=== PATIENT | female | born 1950 | race African-American/Black ===

== ENCOUNTER 2018-10-24 15:50 | Observation (INO) | payer BC ==
--- NOTE | 2018-10-24 17:07 | PDOC ---
Attending Attestation - Resident Resident Name: Rudy Dougherty - HPI HPI: The patient is a 68 year old female, with a significant PMH of DM, HTN, hypercholesterolemia, arthritis, and kidney stones who presents to the emergency department s/p pre-syncopal episode yesterday. Patient reports feeling lightheaded with bilateral heaviness in her hands, causing her to have to sit down and have alcohol splashed on her face to help her feel better. She denies LOC or head contusion. Patient denies any symptoms at this time, but was advised by her PCP to come to the ED for treatment of her pre-syncopal episode. The patient denies chest pain, shortness of breath, and headache. Denies fever, chills, nausea, vomit, diarrhea and constipation. Denies dysuria, frequency, urgency and hematuria. Allergies: NKA Past surgical history: Appendectomy Social history: No reported PCP: Dr. Tawanna Willis 10/24/18 19:01 - Physicial Exam PE: GENERAL: Awake, alert, and fully oriented, in no acute distress HEAD: No signs of trauma EYES: PERRLA, EOMI, sclera anicteric, conjunctiva clear ENT: Auricles normal inspection, hearing grossly normal, nares patent, oropharynx clear without exudates. Moist mucosa NECK: Normal ROM, supple, no lymphadenopathy, JVD, or masses LUNGS: Breath sounds equal, clear to auscultation bilaterally. No wheezes, and no crackles HEART: Regular rate and rhythm, normal S1 and S2, no murmurs, rubs or gallops ABDOMEN: Soft, nontender, normoactive bowel sounds. No guarding, no rebound. No masses EXTREMITIES: Normal range of motion, no edema. No clubbing or cyanosis. No cords, erythema, or tenderness NEUROLOGICAL: Cranial nerves II through XII grossly intact. Normal speech, normal gait SKIN: Warm, Dry, normal turgor, no rashes or lesions noted. 10/24/18 19:01 - Medical Decision Making EXAM#: TYPE/EXAM: RESULT: [id number] RAD/CHEST X-RAY PORTABLE* Syncope Impression: No acute cardiopulmonary disease is present Reported By: Jennifer Portillo MD 10/24/18 19:41 Documentation prepared by KAMLA Interiano, acting as auditor medical claims for Radha Hicks MD. 10/24/18 19:42 <Oxana Oropeza - Last Filed: 10/24/18 19:42> - Medical Decision Making 10/26/18 16:51 Pt presents to the ED for a one day history of persistent lightheadness and an episode of presyncope. EKG and labs are within normal limits, but given her age , will admit to medicine for syncope work up. <Radha Hicks - Last Filed: 10/26/18 16:52> Heart Score/ECG Review - ECG Intrepretation Rhythm: Regular Rhythm Comment:: Normal sinus rhythm. Normal ECG. 10/24/18 17:31 <Oxana Oropeza - Last Filed: 10/24/18 19:42>
--- NOTE | 2018-10-24 18:17 | PDOC ---
History of Present Illness - General Chief Complaint: Syncope/Near Syncope Stated Complaint: Syncope/Near Syncope Time Seen by Provider: 10/24/18 17:05 History Source: Patient Exam Limitations: No Limitations - History of Present Illness Initial Comments: 10/24/18 18:12 The patient is a 68F with a PMH of HTN, DM, HLD who was sent by PCP to ER for syncope. The patient states that she was eating dinner yesterday evening when she syncopized. She woke up feeling well. She states that her only symptom prior to syncope was a feeling of heaviness in her b/l hands. She denies any acute complaints now. She denies fever, chills, nausea, vomiting, CP, SOB, numbness, or tingling before, during, or after the syncopal episode. Past History - Past Medical History Allergies/Adverse Reactions: Allergies Allergy/AdvReac Type Severity Reaction Status Date / Time No Known Allergies Allergy Verified 10/24/18 16:35 Home Medications: Ambulatory Orders Amlodipine Besylate 10 mg PO DAILY 10/24/18 Atorvastatin Ca [Lipitor] 20 mg PO HS 10/24/18 Gabapentin 300 mg PO TID 10/24/18 Metformin HCl [Glucophage] 500 mg PO DAILY 10/24/18 Diabetes: Yes HTN: Yes Hypercholesterolemia: Yes - Surgical History Appendectomy: Yes - Suicide/Smoking/Psychosocial Hx Smoking History: Never smoked Hx Alcohol Use: No Drug/Substance Use Hx: No Substance Use Type: None Review of Systems - Review of Systems Able to Perform ROS?: Yes Comments:: 10/24/18 18:19 GENERAL/CONSTITUTIONAL: No fever or chills. No weakness. HEAD, EYES, EARS, NOSE AND THROAT: No change in vision. No ear pain or discharge. No sore throat. CARDIOVASCULAR: No chest pain, palpitations, or lightheadedness. RESPIRATORY: No cough, wheezing, shortness of breath, or hemoptysis. GASTROINTESTINAL: No nausea, vomiting, diarrhea, constipation, or abdominal pain. GENITOURINARY: No dysuria, frequency, hematuria, or change in urination. MUSCULOSKELETAL: No joint or muscle swelling or pain. No neck or back pain. SKIN: No rash or lesions. NEUROLOGIC: + for syncope. No headache, numbness, tingling, focal weakness, loss of consciousness, or change in strength/sensation. Is the patient limited Mongolian proficient: No *Physical Exam - Vital Signs Last Vital Signs Temp Pulse Resp BP Pulse Ox 98.0 F 65 18 152/77 100 10/24/18 16:36 10/24/18 16:36 10/24/18 16:36 10/24/18 16:36 10/24/18 16:36 - Physical Exam Comments: 10/24/18 18:19 GENERAL: Well developed, well nourished. Awake and alert. No acute distress. HEENT: Normocephalic, atraumatic. Hearing grossly normal. Moist mucous membranes. PERRLA, EOMI. No conjunctival pallor. Sclera are non-icteric. Oropharynx is clear. NECK: Supple. Full ROM. No JVD. CARDIOVASCULAR: Regular rate and rhythm. No murmurs, rubs, or gallops. PULMONARY: No evidence of respiratory distress. Lungs clear to auscultation bilaterally. No wheezing, rales or rhonchi. ABDOMINAL: Soft. Non-tender. Non-distended. No rebound or guarding. GENITOURINARY: No CVA tenderness bilaterally. MUSCULOSKELETAL: Normal range of motion at all joints. No bony deformities or tenderness. EXTREMITIES: No cyanosis. No clubbing. No edema. No calf tenderness or swelling. SKIN: Warm and dry. Normal capillary refill. No rashes. No jaundice. NEUROLOGICAL: Alert, awake, appropriate. Cranial nerves 2-12 grossly intact. No deficits to light touch and temperature in face, upper extremities and lower extremities. 5/5 strength in deltoids, biceps, triceps, quadriceps, hamstrings, and gastrocnemius. Normal speech. Gait is normal without ataxia. PSYCHIATRIC: Cooperative. Good eye contact. Appropriate mood and affect. Moderate Sedation - Procedure Monitoring Vital Signs: Procedure Monitoring Vital Signs Temperature 98.0 F 10/24/18 16:36 Pulse Rate 65 10/24/18 16:36 Respiratory Rate 18 10/24/18 16:36 Blood Pressure 152/77 10/24/18 16:36 O2 Sat by Pulse Oximetry (%) 100 10/24/18 16:36 ED Treatment Course - LABORATORY CBC & Chemistry Diagram: 10/24/18 18:00 10/24/18 18:00 - RADIOLOGY Radiology Studies Ordered: Category Date Time Status HEAD CT WITHOUT CONTRAST [CT] Stat CT Scan 10/24/18 17:34 Ordered CHEST X-RAY PORTABLE* [RAD] Stat Radiology 10/24/18 17:34 Ordered Medical Decision Making - Medical Decision Making 10/24/18 18:19 The patient is a 68F with a PMH of HTN, HLD, DM who presents to the ER after having a syncopal episode yesterday, sent by her PCP Dr. Tawanna Willis. Will obtain labs and EKG and admit for syncopal workup. 10/24/18 19:31 CBC WNL. CMP shows mild AST and alk phos elevation w/ negative troponin. Preliminary read of CXR negative. Will microblog for admission. *DC/Admit/Observation/Transfer - Referrals Referrals: Tawanna Willis MD [Primary Care Provider] - - Patient Instructions - Post Discharge Activity
[2018-10-24 18:21] LABS: BASO % 1.2 % (0-2.0); EOS % 2.7 % (0-4.5); HEMATOCRIT 38.1 % (32.4-45.2); HEMOGLOBIN 13.3 GM/dL (10.7-15.3); LYMPH % 33.4 % (8-40); MCH 27.6 pg (25.7-33.7); MEAN CELL VOLUME 78.8 fl (80-96); NEUT % 53.7 % (42.8-82.8); PLATELET COUNT 288 K/MM3 (134-434); RBC 4.83 M/mm3 (3.60-5.2); RDW 14.7 % (11.6-15.6); WHITE BLOOD COUNT 5.8 K/mm3 (4.0-10.0)
[2018-10-24 19:05] LABS: ALBUMIN 3.8 g/dl (3.4-5.0); ALK PHOS 120 U/L (45-117); ANION GAP 7 MMOL/L (8-16); BILIRUBIN,TOTAL 0.5 mg/dL (0.2-1); BLOOD UREA NITROGEN 18 mg/dL (7-18); CALCIUM 9.2 mg/dL (8.5-10.1); CHLORIDE 105 mmol/L (98-107); CO2 27 mmol/L (21-32); CREATININE 0.7 mg/dL (0.55-1.3); GLUCOSE,RANDOM 129 mg/dL (74-106); N-TERMINAL BNP 171.6 pg/ml (5-125); POTASSIUM 4.2 mmol/L (3.5-5.1); SGOT/AST 23 U/L (15-37); SGPT/ALT 28 U/L (13-61); SODIUM 138 mmol/L (136-145); TOT PROT 7.2 g/dl (6.4-8.2)
--- NOTE | 2018-10-24 20:06 | PN ---
Teaching Attending Note Name of Resident: Alice Robert ATTENDING PHYSICIAN STATEMENT I saw and evaluated the patient. I reviewed the resident's note and discussed the case with the resident. I agree with the resident's findings and plan as documented. SUBJECTIVE: Seen and examined; please refer to resident note for further historical information. Briefly, yesterday she was ambulating in the mall with a friend with b/l hand 'heaviness' and some lightheadedness. She thinks that she may have briefly lost consciousness; no confusion, no FND, no seizure activity, no tinnitus/hearing loss. They put rubbing alcohol on a towel and it resolved her sx. Today she saw her PCP (Dr. Tawanna Willis) who recommended that she present to the ER. She denies any other symptoms. She wonders if she at the time (she didn't have a chance to check her blood sugar); she normally feels weak with her subjective hypoglycemia but this was more severe and furthermore she is only on metformin which would be unlikely to cause this. Orthostatics negative in the ER. Symptoms have not recurred. She informs us that she had a stress test done last year but that she never followed up with the results; she is unsure of the indication for said stress test. 10 sys ROS done and negative aside from HPI PMH (DM, HTN, HLD, OA), PSH (Appy, R-hernia repair), Family hx (mom with CVA), Social hx reviewed (no etoh, tobacco) Medication list reviewed; pending reconciliation OBJECTIVE: VS, labs, imaging reviewed NAD, AAO, resting comfortably in bed NC AT EOMI PERRLA RRR s1/2 no mgr Lungs CTAB, w/ sym exp NT ND +BS CN2-12 wnl, no fnd Normal mood, appropriate behavior EKG reviewed Echo, carotid dopplers pending Labs with mild CK, CK-Mb elevation; repeat pending ASSESSMENT AND PLAN: Patient presents to the hospital after having a presyncopal episode yesterday 1) Presyncope -Negative orthostatics, no arrhythmia on EKG to explain. Ddx broad. -Negative CT head; monitor telemetry, followup echo and check carotid dopplers ( risk factors + for cerebrovascular disease). No recent illness, tinnitus, ear pain, etc. Negative dayna halpike. No high degree AV block or issues seen on tele. -Monitor for hypoglycemia -Fall precautions, PT referral 2) Elevated CK-Mb -Followup repeat; no CV sx at this time and negative troponin. Will monitor on tele. Can try to obtain OP stress results. 3) HTN -Continue home meds; negative OS VS. 4) HLD -Continue home medications 5) OA -PRN management
[2018-10-24 21:23] LABS: INR 1.01 (0.83-1.09); PROTHROMBIN TIME (PATIENT) 11.9 SEC (9.7-13.0)
--- NOTE | 2018-10-24 21:31 | HP ---
CHIEF COMPLAINT:near syncope PCP:Dr. Tawanna Willis HISTORY OF PRESENT ILLNESS: Patient is a 68 year old female with past medical history of HTN, HLD and DM, presented to the ED due to syncopal episode yesterday. Patient reported she was in a mall with friend when she suddenly felt "weird", feeling like she's going to pass out, with some lightheadedness and bilateral hand heaviness. Patient reported she blacked out for a second, but denies any head trauma nor confusion afterwards. This was witnessed by her friend who noted that she wasn't looking good, helped patient to sit down, and put rubbing alcohol into a towel and had the patient inhale it. This lasted for a few seconds, and patient reported feeling better afterwards. Patient denies any fever, chills, headache, nasal congestion, cough, hearing loss, tinnitus, nausea, vomiting, chest pain, SOB, palpitations, abdominal pain, diarrhea, urinary symptoms. 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 Tito Snider). ER course was notable for: (1) (2) (3) Recent Travel:denies PAST MEDICAL HISTORY: HTN HLD DM PAST SURGICAL HISTORY: appendectomy right inguinal hernia repair Social History: Smoking:denies Alcohol:denies Drugs: denies Family History: Mother - stroke at 60 Allergies No Known Allergies Allergy (Verified 10/24/18 16:35) HOME MEDICATIONS: Home Medications Medication Instructions Recorded Amlodipine Besylate 10 mg PO DAILY 10/24/18 Atorvastatin Ca [Lipitor] 20 mg PO HS 10/24/18 Gabapentin 300 mg PO TID 10/24/18 Metformin HCl [Glucophage] 500 mg PO DAILY 10/24/18 REVIEW OF SYSTEMS CONSTITUTIONAL: Absent: fever, chills, diaphoresis, generalized weakness, malaise, loss of appetite, weight change HEENT: Absent: rhinorrhea, nasal congestion, throat pain, throat swelling, difficulty swallowing, mouth swelling, ear pain, eye pain, visual changes CARDIOVASCULAR: Absent: chest pain, syncope, palpitations, irregular heart rate, lightheadedness , peripheral edema RESPIRATORY: Absent: cough, shortness of breath, dyspnea with exertion, orthopnea, wheezing, stridor, hemoptysis GASTROINTESTINAL: Absent: abdominal pain, abdominal distension, nausea, vomiting, diarrhea, constipation, melena, hematochezia GENITOURINARY: Absent: dysuria, frequency, urgency, hesitancy, hematuria, flank pain, genital pain MUSCULOSKELETAL: Absent: myalgia, arthralgia, joint swelling, back pain, neck pain SKIN: Absent: rash, itching, pallor HEMATOLOGIC/IMMUNOLOGIC: Absent: easy bleeding, easy bruising, lymphadenopathy, frequent infections ENDOCRINE: Absent: unexplained weight gain, unexplained weight loss, heat intolerance, cold intolerance NEUROLOGIC: Absent: headache, focal weakness or paresthesias, dizziness, unsteady gait, seizure, mental status changes, bladder or bowel incontinence PSYCHIATRIC: Absent: anxiety, depression, suicidal or homicidal ideation, hallucinations. PHYSICAL EXAMINATION Vital Signs - 24 hr 10/24/18 16:36 Temperature 98.0 F Pulse Rate 65 Respiratory 18 Rate Blood Pressure 152/77 O2 Sat by Pulse 100 Oximetry (%) Orthostatics: lying down 141/74, sitting down 144/81, standing 157/98 GENERAL: Awake, alert, and fully oriented, in no acute distress. HEAD: Normal with no signs of trauma. EYES: PERRLA, EOMI, sclera anicteric, conjunctiva clear. EARS, NOSE, THROAT: Ears normal, oropharynx clear without exudates. Moist mucous membranes. Dighton-Hallpike negative NECK: Normal range of motion, supple without lymphadenopathy, JVD, or masses. LUNGS: Breath sounds equal, clear to auscultation bilaterally. HEART: Regular rate and rhythm, normal S1 and S2 without murmur, rub or gallop. ABDOMEN: Soft, nontender, not distended, normoactive bowel sounds. MUSCULOSKELETAL: Normal range of motion at all joints. No CVA tenderness. UPPER EXTREMITIES: 2+ pulses, warm, well-perfused. No peripheral edema. LOWER EXTREMITIES: 2+ pulses, warm, well-perfused. +2 bilateral peripheral edema. NEUROLOGICAL: Cranial nerves II-XII intact. Motor strength 5/5 on all extremities, sensation intact. Normal speech. Uses a cane to ambulate. PSYCHIATRIC: Cooperative. Good eye contact. Appropriate mood and affect. SKIN: Warm, dry, normal turgor, no rashes or lesions noted. Laboratory Results - last 24 hr 10/24/18 10/24/18 10/24/18 18:00 18:00 18:00 WBC 5.8 RBC 4.83 Hgb 13.3 Hct 38.1 MCV 78.8 L MCH 27.6 MCHC 35.0 RDW 14.7 Plt Count 288 MPV 8.0 Absolute Neuts (auto) 3.1 Neutrophils % 53.7 Lymphocytes % 33.4 Monocytes % 9.0 Eosinophils % 2.7 Basophils % 1.2 Nucleated RBC % 0 PT with INR 11.90 INR 1.01 Sodium 138 Potassium 4.2 Chloride 105 Carbon Dioxide 27 Anion Gap 7 L BUN 18 Creatinine 0.7 Creat Clearance w eGFR > 60 Random Glucose 129 H Calcium 9.2 Magnesium 2.0 Total Bilirubin 0.5 AST 23 ALT 28 Alkaline Phosphatase 120 H Creatine Kinase 241 H Creatine Kinase Index 1.5 CK-MB (CK-2) 3.7 H Troponin I < 0.02 B-Natriuretic Peptide 171.6 H Total Protein 7.2 Albumin 3.8 ASSESSMENT/PLAN: Patient is a 68 year old female with past medical history of HTN, HLD and DM, presented to the ED due to a syncopal episode yesterday. #Syncope: unclear etiology -Head CT: no acute intracranial pathology -Carotid doppler: Small plaques in the right common carotid bifurcation as well as minimal intimal thickening and tiny plaques at the left carotid bifurcation without evidence of hemodynamically significant stenosis bilaterally. -Orthostatics negative, Dighton-hallpike negative -Echo -A1c, Lipid profile, TSH -Tele monitoring #HTN -Amlodipine 10mg daily #HLD -Continue home Lipitor 20mg PO HS #DM -Hold home Metformin -BGM ACHS -Insulin sliding scale implemented #Overflow incontinence -Continue Trospium chloride 20mg BID #FEN -Not on any standing fluids -Electrolytes wnl, routine bmp monitoring -Diabetic diet #Prophylaxis -Heparin 5000units sq bid #Disposition -full code -tele obs Visit type - Emergency Visit Emergency Visit: Yes ED Registration Date: 10/24/18 Care time: The patient presented to the Emergency Department on the above date and was hospitalized for further evaluation of their emergent condition. - New Patient This patient is new to me today: Yes Date on this admission: 10/28/18 - Critical Care Critical Care patient: No
[2018-10-24] MEDS ORDERED: ATORVASTATIN CA 10 MG TABLET (FP) ONE (23:15)
[2018-10-24] MEDS ORDERED: HEPARIN NA (PORCINE) 5,000 UNITS/ML 1ML VIAL ONE (23:15)
[2018-10-24] MEDS ORDERED: INSULIN (NOVOLOG) ASPART 100 UNITS/ML 10ML VIAL ONE (23:16)
[2018-10-24] MEDS: HEPARIN NA (PORCINE) 5,000 UNITS/ML 1ML VIAL SQ SCH (23:21)
[2018-10-24] MEDS: ATORVASTATIN CA 20 MG TABLET (FP) PO SCH (23:22)
[2018-10-24] MEDS: INSULIN SLIDING SCALE (NOVOLOG) 1 VIAL SQ SCH (23:22)
[2018-10-24 23:35] LABS: URINE APPEARANCE CLEAR; URINE BILIRUBIN NEGATIVE (<2.0 mg/dL); URINE COLOR YELLOW; URINE GLUCOSE (UA) NEGATIVE (NEGATIVE); URINE KETONE NEGATIVE (NEGATIVE); URINE LEUK ESTERASE TRACE (NEGATIVE); URINE NITRITE NEGATIVE (NEGATIVE); URINE PROTEIN NEGATIVE (NEGATIVE); URINE UROBILINOGEN NEGATIVE mg/dL (0.2-1.0)
[2018-10-24 23:48] LABS: URINE MUCUS RARE
[2018-10-25 03:14] VITALS: BMI 39.9
[2018-10-25] MEDS: GABAPENTIN 300 MG CAPSULE (FP) PO SCH ×3 (06:00→23:54)
[2018-10-25] MEDS: INSULIN SLIDING SCALE (NOVOLOG) 1 VIAL SQ SCH ×4 (06:00→23:54)
[2018-10-25 06:46] LABS: BASO % 0.8 % (0-2.0); EOS % 2.6 % (0-4.5); HEMATOCRIT 36.2 % (32.4-45.2); HEMOGLOBIN 12.7 GM/dL (10.7-15.3); LYMPH % 37.4 % (8-40); MCH 27.7 pg (25.7-33.7); MCHC 35.1 g/dl (32.0-36.0); MONO % 10.9 % (3.8-10.2); NEUT % 48.3 % (42.8-82.8); PLATELET COUNT 281 K/MM3 (134-434); RBC 4.59 M/mm3 (3.60-5.2); RDW 14.5 % (11.6-15.6); WHITE BLOOD COUNT 5.4 K/mm3 (4.0-10.0)
[2018-10-25 09:00] LABS: ALBUMIN 3.6 g/dl (3.4-5.0); ALK PHOS 110 U/L (45-117); ANION GAP 7 MMOL/L (8-16); BILIRUBIN,TOTAL 0.7 mg/dL (0.2-1); BLOOD UREA NITROGEN 20 mg/dL (7-18); CHLORIDE 108 mmol/L (98-107); CO2 27 mmol/L (21-32); CREATININE 0.8 mg/dL (0.55-1.3); GLUCOSE,RANDOM 85 mg/dL (74-106); PHOSPHOROUS 3.9 mg/dL (2.5-4.9); POTASSIUM 4.4 mmol/L (3.5-5.1); SGOT/AST 16 U/L (15-37); SGPT/ALT 22 U/L (13-61); SODIUM 142 mmol/L (136-145); TOT PROT 6.7 g/dl (6.4-8.2)
[2018-10-25] MEDS: SODIUM CHLORIDE 1,000 ML IV SCH (09:46)
[2018-10-25] MEDS ORDERED: TROSPIUM CHLORIDE 20 MG PO SCH (10:00)
[2018-10-25] MEDS ORDERED: amLODIPine BESYLATE 10 MG TABLET (FP) PO SCH (10:00)
[2018-10-25] MEDS: HEPARIN NA (PORCINE) 5,000 UNITS/ML 1ML VIAL SQ SCH ×2 (10:45→23:53)
--- NOTE | 2018-10-25 10:57 | ECHO ---
Name: EMA, MELVIN Exam:Adult Echocardiogram Study Date: 10/25/2018 09:39 AM Age: 68 yrs Reason For Study: SYNCOPE Height: 65 in Weight: 204 lb BSA: 2.0 m2 MMode/2D Measurements & Calculations IVSd: 0.88 cm ACS: 2.0 cm LVIDd: 3.6 cm LVIDs: 2.5 cm LVPWd: 1.3 cm EDV(Teich): 54.0 ml LVOT diam: 2.0 cm ESV(Teich): 21.5 ml RV S Jerry: 11.4 cm/sec Doppler Measurements & Calculations Med Peak E' Jerry: 7.5 cm/sec Lat Peak E' Jerry: 8.7 cm/sec Left Ventricle There is mild concentric left ventricular hypertrophy. Left ventricular systolic function is normal. Ejection Fraction = 55-60%. The transmitral spectral Doppler flow pattern is suggestive of impaired LV relaxat ion. Right Ventricle The right ventricle is normal in size and function. Atria Normal left and right atrial size and function. The atrial septum is aneurysmal. Mitral Valve The mitral valve is normal in structure and function. There is no mitral valve stenosis. There is mil d mitral regurgitation. Tricuspid Valve The tricuspid valve is normal in structure and function. There is mild tricuspid regurgitation. Aortic Valve The aortic valve opens well. No hemodynamically significant valvular aortic stenosis. No aortic regur gitation is present. Great Vessels The aortic root is normal size. Pericardium/Pleura There is no pericardial effusion. Interpretation Summary There is mild concentric left ventricular hypertrophy. Left ventricular systolic function is normal. Ejection Fraction = 55-60%. The right ventricle is normal in size and function. There is mild mitral regurgitation. There is mild tricuspid regurgitation. The atrial septum is aneurysmal. There is no pericardial effusion. MD Ward *Tanja 10/25/2018 10:56 AM
--- NOTE | 2018-10-25 14:25 | EKG ---
Test Reason : Blood Pressure : / mmHG Vent. Rate : 064 BPM Atrial Rate : 064 BPM P-R Int : 172 ms QRS Dur : 088 ms QT Int : 400 ms P-R-T Axes : 068 030 064 degrees QTc Int : 412 ms NORMAL SINUS RHYTHM NORMAL ECG NO PREVIOUS ECGS AVAILABLE Confirmed by ROBB GROSS MD ([id number]) on 10/25/2018 2:25:18 PM Referred By: Confirmed By:ROBB GROSS MD
--- NOTE | 2018-10-25 14:46 | PN ---
Physical Exam: SUBJECTIVE: Patient seen and examined at bedside. No acute events. Resting comfortably. OBJECTIVE: Vital Signs Period Temp Pulse Resp BP Sys/Delcid Pulse Ox Last 24 Hr 98.0 F-98.9 F 65-90 17-20 94-152/30-88 95-100 GENERAL: No acute distress. Sitting in bed HEAD: Normal with no signs of trauma. EYES: EOMI Sclera Clear ENT: MMM NECK: Trachea midline, full range of motion, supple. LUNGS: CTAB HEART: RRR nl s1s2 ABDOMEN: Obese Nondistended nontender EXTREMITIES: 2+ pulses, warm, well-perfused, no edema. NEUROLOGICAL: Cranial nerves II through XII grossly intact. no motor or sensory deficits appreciated PSYCH: Normal mood, normal affect. SKIN: Warm, dry, normal turgor, no rashes or lesions noted Laboratory Results - last 24 hr 10/24/18 10/24/18 10/24/18 18:00 18:00 18:00 WBC 5.8 RBC 4.83 Hgb 13.3 Hct 38.1 MCV 78.8 L MCH 27.6 MCHC 35.0 RDW 14.7 Plt Count 288 MPV 8.0 Absolute Neuts (auto) 3.1 Neutrophils % 53.7 Lymphocytes % 33.4 Monocytes % 9.0 Eosinophils % 2.7 Basophils % 1.2 Nucleated RBC % 0 PT with INR 11.90 INR 1.01 Sodium 138 Potassium 4.2 Chloride 105 Carbon Dioxide 27 Anion Gap 7 L BUN 18 Creatinine 0.7 Creat Clearance w eGFR > 60 POC Glucometer Random Glucose 129 H Calcium 9.2 Phosphorus Magnesium 2.0 Total Bilirubin 0.5 AST 23 ALT 28 Alkaline Phosphatase 120 H Creatine Kinase 241 H Creatine Kinase Index 1.5 CK-MB (CK-2) 3.7 H Troponin I < 0.02 B-Natriuretic Peptide 171.6 H Total Protein 7.2 Albumin 3.8 TSH Urine Color Urine Appearance Urine pH Ur Specific [place] Urine Protein Urine Glucose (UA) Urine Ketones Urine Blood Urine Nitrite Urine Bilirubin Urine Urobilinogen Ur Leukocyte Esterase Urine WBC (Auto) Urine RBC (Auto) Urine Mucus 10/24/18 10/24/18 10/24/18 22:12 22:45 23:11 WBC RBC Hgb Hct MCV MCH MCHC RDW Plt Count MPV Absolute Neuts (auto) Neutrophils % Lymphocytes % Monocytes % Eosinophils % Basophils % Nucleated RBC % PT with INR INR Sodium Potassium Chloride Carbon Dioxide Anion Gap BUN Creatinine Creat Clearance w eGFR POC Glucometer 254 Random Glucose Calcium Phosphorus Magnesium Total Bilirubin AST ALT Alkaline Phosphatase Creatine Kinase 203 H Creatine Kinase Index 1.3 CK-MB (CK-2) 2.7 Troponin I < 0.02 B-Natriuretic Peptide Total Protein Albumin TSH 0.81 Urine Color Yellow Urine Appearance Clear Urine pH 6.0 Ur Specific [place] 1.027 Urine Protein Negative Urine Glucose (UA) Negative Urine Ketones Negative Urine Blood Negative Urine Nitrite Negative Urine Bilirubin Negative Urine Urobilinogen Negative Ur Leukocyte Esterase Trace Urine WBC (Auto) 11 Urine RBC (Auto) <1 Urine Mucus Rare 10/25/18 10/25/18 10/25/18 02:30 05:58 06:00 WBC 5.4 RBC 4.59 Hgb 12.7 Hct 36.2 MCV 79.0 L MCH 27.7 MCHC 35.1 RDW 14.5 Plt Count 281 MPV 8.0 Absolute Neuts (auto) 2.6 Neutrophils % 48.3 Lymphocytes % 37.4 Monocytes % 10.9 H Eosinophils % 2.6 Basophils % 0.8 Nucleated RBC % 0 PT with INR INR Sodium Potassium Chloride Carbon Dioxide Anion Gap BUN Creatinine Creat Clearance w eGFR POC Glucometer 89 Random Glucose Calcium Phosphorus Magnesium Total Bilirubin AST ALT Alkaline Phosphatase Creatine Kinase 168 Creatine Kinase Index 1.2 CK-MB (CK-2) 2.1 Troponin I < 0.02 B-Natriuretic Peptide Total Protein Albumin TSH Urine Color Urine Appearance Urine pH Ur Specific [place] Urine Protein Urine Glucose (UA) Urine Ketones Urine Blood Urine Nitrite Urine Bilirubin Urine Urobilinogen Ur Leukocyte Esterase Urine WBC (Auto) Urine RBC (Auto) Urine Mucus 10/25/18 10/25/18 06:00 11:30 WBC RBC Hgb Hct MCV MCH MCHC RDW Plt Count MPV Absolute Neuts (auto) Neutrophils % Lymphocytes % Monocytes % Eosinophils % Basophils % Nucleated RBC % PT with INR INR Sodium 142 Potassium 4.4 Chloride 108 H Carbon Dioxide 27 Anion Gap 7 L BUN 20 H Creatinine 0.8 Creat Clearance w eGFR > 60 POC Glucometer 121 Random Glucose 85 Calcium 9.0 Phosphorus 3.9 Magnesium 2.0 Total Bilirubin 0.7 AST 16 ALT 22 Alkaline Phosphatase 110 Creatine Kinase Creatine Kinase Index CK-MB (CK-2) Troponin I < 0.02 B-Natriuretic Peptide Total Protein 6.7 Albumin 3.6 TSH Urine Color Urine Appearance Urine pH Ur Specific [place] Urine Protein Urine Glucose (UA) Urine Ketones Urine Blood Urine Nitrite Urine Bilirubin Urine Urobilinogen Ur Leukocyte Esterase Urine WBC (Auto) Urine RBC (Auto) Urine Mucus Active Medications Generic Name Dose Route Start Last Admin Trade Name Germanq PRN Reason Stop Dose Admin Amlodipine Besylate 10 mg 10/25/18 10:00 10/25/18 09:16 Norvasc - PO 10 mg DAILY RIZWAN Administration Atorvastatin Calcium 20 mg 10/24/18 22:00 10/24/18 23:22 Lipitor - PO 20 mg HS RIZWAN Administration Gabapentin 300 mg 10/25/18 06:00 10/25/18 13:45 Neurontin - PO 300 mg TID RIZWAN Administration Heparin Sodium (Porcine) 5,000 unit 10/24/18 22:00 10/25/18 10:45 Heparin - SQ 5,000 unit BID RIZWAN Administration Sodium Chloride 1,000 mls @ 100 mls/hr 10/25/18 09:15 10/25/18 09:46 Normal Saline - IV 100 mls/hr ASDIR RIZWAN Administration Insulin Aspart 1 vial 10/24/18 22:00 10/25/18 12:02 Novolog Vial Sliding Scale - SQ Not Given ACHS [facility] Protocol Non-Formulary Medication 20 mg 10/25/18 10:00 Trospium Chloride [Trospium Chloride Er] PO BID [facility] ASSESSMENT/PLAN: Patient is a 68 year old female with past medical history of HTN, HLD and DM, presented to the ED due to a syncopal episode yesterday. #Syncope 2/2 orthostatic hypotension -Head CT: no acute intracranial pathology -Carotid doppler: Small plaques in the right common carotid bifurcation as well as minimal intimal thickening and tiny plaques at the left carotid bifurcation without evidence of hemodynamically significant stenosis bilaterally. -Decrease Norvasc to 5 daily -Orthostatics negative, [place]-hallpike negative -Echo---> Mild concentric Left ventricular hypertrophy. Left ventruicular systolic function normal. EF 55-60%. Mild Mitral regurg. Mild tricuspid regurg. Atrial septum aneurysmal. The is no pericardial effusion. Will need outpatient follow up with cardiology for aneurysmal septum. - TSH 0.81 -Tele monitoring #HTN -Amlodipine 5 mg daily #HLD -Continue home Lipitor 20mg PO HS #DM -Hold home Metformin -BGM ACHS -Insulin sliding scale implemented #Overflow incontinence -Continue Trospium chloride 20mg BID #FEN -NS@100cc/hr -Electrolytes wnl, routine bmp monitoring -Diabetic diet #Prophylaxis -Heparin 5000units sq bid #Dispo -tele Visit type - Emergency Visit Emergency Visit: Yes ED Registration Date: 10/24/18 Care time: The patient presented to the Emergency Department on the above date and was hospitalized for further evaluation of their emergent condition. - New Patient This patient is new to me today: No - Critical Care Critical Care patient: No - Discharge Referral Referred to [facility] Med P.C.: No
--- NOTE | 2018-10-25 17:44 | PN ---
Teaching Attending Note Name of Resident: Zach Willis ATTENDING PHYSICIAN STATEMENT I saw and evaluated the patient. I reviewed the resident's note and discussed the case with the resident. I agree with the resident's findings and plan as documented. SUBJECTIVE: no paian , no SOB , no TANG , OBJECTIVE: NAD, awake, alert , cooperative. CV: RRR, no MRG Lungs: CTAB Ext : trace edema Abd: soft, ND, NL BS ,NT neuro : EOMi, round pupils, no facial droop, tongue at mid line. strength 5/5 in upper and lower ext proximally and distally ASSESSMENT AND PLAN: 68 y/o lady with h/o DM, HTN, HLP, and OA who presented [place] a [place], she was referred by her PCP . 1- Syncope: due to orthostatic hypotension . - started IVf - repeat Ortho VS in am - echo and CUS reviewed. echo need to be repeated as out pt and followed by card for aneurysmal atrial septum. - decrease norvasc to 5 mg daily - tele 2- Dm : SSI 3- HTN : as above DVT px : heparin disp o: possible dc home tomorrow
[2018-10-25] MEDS: ATORVASTATIN CA 20 MG TABLET (FP) PO SCH (23:54)
--- NOTE | 2018-10-26 05:25 | PN ---
Physical Exam: SUBJECTIVE: Patient seen and examined OBJECTIVE: Vital Signs Period Temp Pulse Resp BP Sys/Delcid Pulse Ox Last 24 Hr 97.9 F-99.6 F 71-90 18-20 102-153/57-88 95-96 GENERAL: The patient is awake, alert, and fully oriented, in no acute distress. HEAD: Normal with no signs of trauma. EYES: PERRL, extraocular movements intact, sclera anicteric, conjunctiva clear. No ptosis. ENT: Ears normal, nares patent, oropharynx clear without exudates, moist mucous membranes. NECK: Trachea midline, full range of motion, supple. LUNGS: Breath sounds equal, clear to auscultation bilaterally, no wheezes, no crackles, no accessory muscle use. HEART: Regular rate and rhythm, S1, S2 without murmur, rub or gallop. ABDOMEN: Soft, nontender, nondistended, normoactive bowel sounds, no guarding, no rebound, no hepatosplenomegaly, no masses. EXTREMITIES: 2+ pulses, warm, well-perfused, no edema. NEUROLOGICAL: Cranial nerves II through XII grossly intact. Normal speech, gait not observed. PSYCH: Normal mood, normal affect. SKIN: Warm, dry, normal turgor, no rashes or lesions noted Laboratory Results - last 24 hr 10/25/18 10/25/18 10/25/18 05:58 06:00 06:00 WBC 5.4 RBC 4.59 Hgb 12.7 Hct 36.2 MCV 79.0 L MCH 27.7 MCHC 35.1 RDW 14.5 Plt Count 281 MPV 8.0 Absolute Neuts (auto) 2.6 Neutrophils % 48.3 Lymphocytes % 37.4 Monocytes % 10.9 H Eosinophils % 2.6 Basophils % 0.8 Nucleated RBC % 0 Sodium 142 Potassium 4.4 Chloride 108 H Carbon Dioxide 27 Anion Gap 7 L BUN 20 H Creatinine 0.8 Creat Clearance w eGFR > 60 POC Glucometer 89 Random Glucose 85 Calcium 9.0 Phosphorus 3.9 Magnesium 2.0 Total Bilirubin 0.7 AST 16 ALT 22 Alkaline Phosphatase 110 Troponin I < 0.02 Total Protein 6.7 Albumin 3.6 10/25/18 10/25/18 11:30 16:45 WBC RBC Hgb Hct MCV MCH MCHC RDW Plt Count MPV Absolute Neuts (auto) Neutrophils % Lymphocytes % Monocytes % Eosinophils % Basophils % Nucleated RBC % Sodium Potassium Chloride Carbon Dioxide Anion Gap BUN Creatinine Creat Clearance w eGFR POC Glucometer 121 133 Random Glucose Calcium Phosphorus Magnesium Total Bilirubin AST ALT Alkaline Phosphatase Troponin I Total Protein Albumin Active Medications Generic Name Dose Route Start Last Admin Trade Name Kaveh PRN Reason Stop Dose Admin Amlodipine Besylate 5 mg 10/26/18 10:00 Norvasc - PO DAILY RIZWAN Atorvastatin Calcium 20 mg 10/24/18 22:00 10/25/18 23:54 Lipitor - PO 20 mg HS RIZWAN Administration Gabapentin 300 mg 10/25/18 06:00 10/25/18 23:54 Neurontin - PO 300 mg TID RIZWAN Administration Heparin Sodium (Porcine) 5,000 unit 10/25/18 22:00 10/25/18 23:53 Heparin - SQ 5,000 unit TID RIZWAN Administration Sodium Chloride 1,000 mls @ 100 mls/hr 10/25/18 09:15 10/25/18 09:46 Normal Saline - IV 100 mls/hr ASDIR RIZWAN Administration Insulin Aspart 1 vial 10/24/18 22:00 10/25/18 23:54 Novolog Vial Sliding Scale - SQ Not Given ACHS [facility] Protocol CBC, BMP 10/25/18 06:00 10/25/18 06:00 ASSESSMENT/PLAN: Patient is a 68 year old female with past medical history of HTN, HLD and DM, presented to the ED due to a syncopal episode yesterday. #Syncope: unclear etiology -Head CT: no acute intracranial pathology -Carotid doppler: Small plaques in the right common carotid bifurcation as well as minimal intimal thickening and tiny plaques at the left carotid bifurcation without evidence of hemodynamically significant stenosis bilaterally. -Orthostatics negative, [place]-hallpike negative -Echo---> Mild concentric Left ventricular hypertrophy. Left ventruicular systolic function normal. EF 55-60%. Mild Mitral regurg. Mild tricuspid regurg. Atrial septum aneurysmal. The is no pericardial effusion. -A1c, Lipid profile, TSH -Tele monitoring #HTN -Amlodipine 10mg daily #HLD -Continue home Lipitor 20mg PO HS #DM -Hold home Metformin -BGM ACHS -Insulin sliding scale implemented #Overflow incontinence -Continue Trospium chloride 20mg BID #FEN -Not on any standing fluids -Electrolytes wnl, routine bmp monitoring -Diabetic diet #Prophylaxis -Heparin 5000units sq bid #Dispo -full code -tele obs
[2018-10-26] MEDS: GABAPENTIN 300 MG CAPSULE (FP) PO SCH ×2 (05:47→13:46)
[2018-10-26] MEDS: HEPARIN NA (PORCINE) 5,000 UNITS/ML 1ML VIAL SQ SCH ×2 (05:47→14:55)
[2018-10-26] MEDS: INSULIN SLIDING SCALE (NOVOLOG) 1 VIAL SQ SCH ×2 (06:32→11:56)
[2018-10-26] MEDS: SODIUM CHLORIDE 1,000 ML IV SCH (09:22)
[2018-10-26 09:52] VITALS: PULSE 86
[2018-10-26] MEDS ORDERED: amLODIPine BESYLATE 5 MG TABLET (FP) PO SCH (10:00)
--- NOTE | 2018-10-26 12:16 | PN ---
Teaching Attending Note Name of Resident: Abraham Cheney ATTENDING PHYSICIAN STATEMENT I saw and evaluated the patient. I reviewed the resident's note and discussed the case with the resident. I agree with the resident's findings and plan as documented. SUBJECTIVE: No fever or chills . No TANG , pain in her legs OBJECTIVE: NAD, awake, alert , cooperative. CV: RRR, no MRG Lungs: CTAB Ext : trace edema .tenderness on legs ASSESSMENT AND PLAN: 68 y/o lady with h/o DM, HTN, HLP, and OA who presented after a [place]opal [place] the [place] 2 [place], she was referred by her PCP . 1- Syncope: due to orthostatic hypotension . - repeat VS showed resolution hypotension -stp IVF - cont decreased sode of norvasc at dc -echo need to be repeated as out pt and followed by card for aneurysmal atrial septum. 2- Dm : resume metformin as a out pt 3- HTN : as above Dc home .She walked with dr. Noni browning
[2018-10-26 12:31] VITALS: BP 116/60; TEMP 98.4
--- NOTE | 2018-10-26 13:15 | DS ---
Physical Exam: SUBJECTIVE: Patient seen and examined at bed side , orthostatics is negative , hypodermically stable will dc home today OBJECTIVE: Vital Signs Period Temp Pulse Resp BP Sys/Delcid Pulse Ox Last 24 Hr 97.9 F-99.6 F 71-92 18-20 102-155/57-83 95-97 PHYSICAL EXAM GENERAL: No acute distress. Sitting in bed HEAD: Normal with no signs of trauma. EYES: EOMI Sclera Clear ENT: MMM NECK: Trachea midline, full range of motion, supple. LUNGS: CTAB HEART: RRR nl s1s2 ABDOMEN: Obese Nondistended nontender EXTREMITIES: 2+ pulses, warm, well-perfused, no edema. NEUROLOGICAL: Cranial nerves II through XII grossly intact. no motor or sensory deficits appreciated PSYCH: Normal mood, normal affect. SKIN: Warm, dry, normal turgor, LABS Laboratory Results - last 24 hr 10/25/18 10/26/18 10/26/18 16:45 05:44 11:34 POC Glucometer 133 126 109 HOSPITAL COURSE: Date of Admission:10/24/18 Date of Discharge: 10/26/18 68 y/o lady with h/o DM, HTN, HLP, and OA who presented after a [place]opal [place] the [place] 2 [place], she was referred by her PCP . for Syncope likely due to orthostatic hypotension .repeat VS showed resolution hypotension , norvasc decreased to 5 mg daily . echo need to be repeated as out pt and followed by card for aneurysmal atrial septum. resume metformin for DM will be dc home today and was able to walk in room to door and back. Minutes to complete discharge: 34 Discharge Summary Reason For Visit: Syncope Current Active Problems Diabetes (Chronic) Hypertension (Chronic) Condition: Improved - Instructions Diet, Activity, Other Instructions: you presented to the hospital due to syncopal episode due to dehydration , you were given fluids and your symptoms improved Please follow up with you primary care physician within one week Please follow up with Your cardiology you need to repeat echo for your heart as out patient ( aneurysmal dilation of the atrial septum ) Please take your time when you get out of bed or change your position Please keep your self hydrated Your Norvac has been decreased to 5 mg daily Please resume other home meds as before admission If you develop fever, chills, light headedness, chest pain or dizziness call 911 or return to the hospital Referrals: Jose Raul Oh MD [Staff Physician] - 3 Weeks Tawanna Willis MD [Primary Care Provider] - 1 Week Disposition: HOME - Home Medications Comprehensive Discharge Medication List: Ambulatory Orders Atorvastatin Ca [Lipitor] 20 mg PO HS 10/24/18 Gabapentin 300 mg PO TID 10/24/18 Metformin HCl [Glucophage] 500 mg PO DAILY 10/24/18 Trospium Chloride [Trospium Chloride ER] 20 mg PO BID 10/24/18 Amlodipine Besylate [Norvasc -] 5 mg PO DAILY #30 tablet 10/26/18 This patient is new to me today: No Emergency Visit: Yes ED Registration Date: 10/24/18 Care time: The patient presented to the Emergency Department on the above date and was hospitalized for further evaluation of their emergent condition. Critical Care patient: No - Discharge Referral Referred to [facility] Med P.C.: No
== END 2018-10-26 16:21 | disposition home or self-care (01) ==
LOC: JER 15:50 → JERBED 18:20 → J4S 23:27
PROVIDERS: ADMIT Internal Medicine; ATTEND Internal Medicine
PROC: 3E013GC Introduction of Other Therapeutic Substance into Subcutaneous Tissue, Percutaneous Approach (ICD-10-PCS; principal; 2018-10-24)
DX: I95.1 Orthostatic hypotension (principal); R55 Syncope and collapse; R74.8 Abnormal levels of other serum enzymes; I10 Essential (primary) hypertension; E78.5 Hyperlipidemia, unspecified; E11.9 Type 2 diabetes mellitus without complications; M19.90 Unspecified osteoarthritis, unspecified site; N39.490 Overflow incontinence; Z79.84 Long term (current) use of oral hypoglycemic drugs; Z87.442 Personal history of urinary calculi
CPT/HCPCS: 36415; 70450-TC; 71045-TC-FY; 80053; 81003; 81015; 82550; 82553; 82962; 83735; 83880; 84100; 84443; 84484; 85025; 85610; 93005; 93010; 93306-TC; 93880-TC; 93970-TC; 96372; 99283-25; G0378; J1644; J7030

== ENCOUNTER 2019-02-17 13:04 | Emergency (ER) | payer BC ==
[2019-02-17 13:15] VITALS: BP 179/93; PULSE 88; TEMP 98.8; BMI 37.8
[2019-02-17] MEDS ORDERED: GLUCAGON 1 MG KIT IM ONE (13:49)
[2019-02-17] MEDS ORDERED: GlUCAGON HUMAN RECOMBINANT 1 MG/VIAL ONE (13:51)
--- NOTE | 2019-02-17 14:47 | PDOC ---
History of Present Illness - General Chief Complaint: Foreign Body (FB) Stated Complaint: FISH BONE IN THROAT Time Seen by Provider: 02/17/19 13:21 - History of Present Illness Initial Comments: 02/17/19 14:44 68-year-old female resents for evaluation of a foreign body sensation in her throat after eating fish. She feels that she has a fishbone stuck in her throat. Past History - Past Medical History Allergies/Adverse Reactions: Allergies Allergy/AdvReac Type Severity Reaction Status Date / Time No Known Allergies Allergy Verified 02/17/19 13:15 Home Medications: Ambulatory Orders Atorvastatin Ca [Lipitor] 20 mg PO HS 10/24/18 Gabapentin 300 mg PO TID 10/24/18 Metformin HCl [Glucophage] 500 mg PO DAILY 10/24/18 Trospium Chloride [Trospium Chloride ER] 20 mg PO BID 10/24/18 Amlodipine Besylate [Norvasc -] 5 mg PO DAILY #30 tablet 10/26/18 COPD: No Diabetes: Yes HTN: Yes Hypercholesterolemia: Yes Other medical history: b/l chronic knee pain - Surgical History Appendectomy: Yes - Reproductive History Is Patient Now?: No Cervical CA: No Dysfunctional Uterine Bleeding: No Ectopic : No Endometrial CA: No Polycystic Ovaries: No Tubal Ligation: No - Suicide/Smoking/Psychosocial Hx Smoking History: Never smoked Have you smoked in the past 12 months: No Hx Alcohol Use: No Drug/Substance Use Hx: No Substance Use Type: None Hx Substance Use Treatment: No Review of Systems - Review of Systems HEENTM: Yes: Throat Pain, Difficulty Swallowing *Physical Exam - Vital Signs Last Vital Signs Temp Pulse Resp BP Pulse Ox 98.8 F 88 18 179/93 H 95 02/17/19 13:12 02/17/19 13:12 02/17/19 13:12 02/17/19 13:12 02/17/19 13:12 - Physical Exam Comments: 02/17/19 14:44 HEAD: NC/AT EYES: Conjuntiva clear Ears: Canals and TM's normal NOSE: No d/c THROAT: Moist mucous membrances, oral pharanx clear, uvula midline NECK: Supple without adenopathy CARDIAC: S1 S2 LUNGS: CTA Full and Equal breath sounds ABDOMEN: Soft NT ND MS: Full ROM in all joints without edema NEUROLOGIC: No gross sensory or motor deficits, NVID SKIN: Normal color and temperature no lesions or rashes ED Treatment Course - RADIOLOGY Radiology Studies Ordered: Category Date Time Status NECK SOFT TISSUE [RAD] Stat Radiology 02/17/19 13:21 Completed - Medications Given in the ED: ED Medications Discontinued Medications Generic Name Dose Route Start Last Admin Trade Name Kaveh PRN Reason Stop Dose Admin Glucagon 1 mg 02/17/19 13:49 02/17/19 14:02 Glucagon - IM 02/17/19 13:50 1 mg ONCE ONE Administration Medical Decision Making - Medical Decision Making 02/17/19 14:44 Radiographs are normal without evidence of foreign body. I discussed this case with ear nose and throat doctor he will see her in the office tomorrow. The patient tolerates by mouth is able to handle her secretions and has no indication of airway involvement. I discussed this with the patient and she is in agreement with the plan. I will also discussed with emergency room attending who is in agreement. Patient got no relief with glucagon *DC/Admit/Observation/Transfer Diagnosis at time of Disposition: Foreign body (FB) in soft tissue - Discharge Dispostion Disposition: HOME Condition at time of disposition: Stable Decision to Admit order: No - Referrals Referrals: Brian Willis [Primary Care Provider] - Richmond Zayas MD [Staff Physician] - - Patient Instructions Printed Discharge Instructions: DI for Removal of Foreign Body From Esophagus Additional Instructions: Please follow-up with ear nose and throat doctor tomorrow as discussed without fail. Return to the emergency room for worsening symptoms. - Post Discharge Activity
== END 2019-02-17 15:04 | disposition home or self-care (01) ==
LOC: JERFT 13:04
PROC: 3E023GC Introduction of Other Therapeutic Substance into Muscle, Percutaneous Approach (ICD-10-PCS; principal; 2019-02-17)
DX: R09.89 Other specified symptoms and signs involving the circulatory and respiratory systems (principal); T17.228A Food in pharynx causing other injury, initial encounter; X58.XXXA Exposure to other specified factors, initial encounter; Y93.89 Activity, other specified; Y92.89 Other specified places as the place of occurrence of the external cause; Y99.8 Other external cause status; I10 Essential (primary) hypertension; E78.00 Pure hypercholesterolemia, unspecified; E11.9 Type 2 diabetes mellitus without complications; Z79.84 Long term (current) use of oral hypoglycemic drugs
CPT/HCPCS: 70360-TC-FY; 96372; 99282-25